=== PATIENT | male | born 2000 | race Hispanic/Latino ===

== ENCOUNTER 2022-04-30 09:13 | Inpatient (IN) | payer OTHER ==
[~2022-04-30] VITALS: Ht 177.8 cm; Wt 65.3 kg
[2022-04-30] VITALS (15 sets, daily range): BP systolic 121–140; BP diastolic 73–98
[2022-04-30] MEDS ORDERED: LACTATED RINGER'S 1,000 ML INJ ONE (09:45)
[2022-04-30 09:50] LABS: BASOPHILS % 0.6 % (0.0-1.0); EOSINOPHILS % 0.6 % (0.0-6.0); HEMATOCRIT 47.5 % (38.2-49.6); HEMOGLOBIN 16.5 g/dL (14.0-18.0); LYMPHOCYTES # (AUTO) 1.3 (1.0-3.2); LYMPHOCYTES % 26.9 % (18.0-39.1); MEAN CORPUSCULAR HEMOGLOBIN 34.4 pg (28-32); MEAN CORPUSCULAR HGB CONC 34.7 g/dL (31-35); MONOCYTES # (AUTO) 0.3 (0.2-0.8); MONOCYTES % 6.5 % (4.4-11.3); NEUTROPHILS # (AUTO) 2.9 (2.1-6.9); NEUTROPHILS % 62.6 % (38.7-80.0); PLATELET COUNT 156 x10e3/uL (140-360); RED CELL DISTRIBUTION WIDTH 12.2 % (11.7-14.4)
[2022-04-30 10:07] LABS: CLARITY,URINE CLEAR (CLEAR); COLOR,URINE YELLOW (YELLOW); KETONES,URINE >=160 (NEGATIVE); LEUKOCYTE ESTERASE ,URINE NEGATIVE (NEGATIVE); NITRITE,URINE NEGATIVE (NEGATIVE); PROTEIN,URINE DIPSTICK 2+ (NEGATIVE); URINE UROBILINOGEN 0.2 mg/dL (0.2 - 1)
[2022-04-30 10:18] LABS: ALANINE AMINOTRANSFERASE 16 IU/L (0-55); ALBUMIN 4.1 g/dL (3.5-5.0); ALBUMIN/GLOBULIN RATIO 0.9 (0.8-2.0); ALKALINE PHOSPHATASE 98 IU/L (40-150); BLOOD UREA NITROGEN 13 mg/dL (7-26); BUN/CREATININE RATIO 7 (6-25); CHLORIDE 106 mmol/L (98-107); POTASSIUM 3.6 mmol/L (3.5-5.1); SODIUM 132 mmol/L (136-145)
[2022-04-30 10:23] LABS: BACTERIA,URINE RARE /HPF; EPITHELIAL CELLS,URINE FEW /LPF; RBC,URINE 0-5 /HPF (0-5)
[2022-04-30 10:26] LABS: RENAL EPITHELIAL CELLS,URINE FEW
[2022-04-30 10:29] LABS: ANION GAP 24.6 mmol/L (8-16)
[2022-04-30 10:31] LABS: CARBON DIOXIDE < 5 mmol/L (22-29); GLUCOSE 504 mg/dL (74-118)
[2022-04-30] MEDS ORDERED: DEXTROSE 5%/0.45% SOD CHL 1,000 ML IV SCH (10:45)
[2022-04-30] MEDS ORDERED: POTASSIUM CHLORIDE 20MEQ/100ML 100 ML INJ PRN (10:45)
[2022-04-30] MEDS ORDERED: MAGNESIUM SULF 1GRAM/DEXTROSE 100 ML IV PRN (10:45)
[2022-04-30] MEDS ORDERED: SODIUM CHLORIDE 0.9% 1000ML 1,000 ML IV SCH (10:45)
[2022-04-30] MEDS ORDERED: INSULIN REGULAR, HUMAN 3ML VL 100 UNIT in SODIUM CHLORIDE 0.9% 100 ML IV SCH ×2 (10:45)
[2022-04-30] MEDS ORDERED: SODIUM CHLORIDE 0.9% 1000ML 1,000 ML ONE (10:57)
[2022-04-30] MEDS ORDERED: LEVOTHYROXINE75 MCG PO (12:38)
[2022-04-30] MEDS ORDERED: LEVEMIR FL100 UNIT/1 SQ (12:38)
[2022-04-30] MEDS ORDERED: SERTRALINE HCL50 MG PO (12:38)
[2022-04-30] MEDS ORDERED: NOVOLOG100 UNITS1 SQ (12:38)
[2022-04-30] MEDS ORDERED: DEXTROSE 50% SYRINGE 50 ML IV PRN (12:45)
[2022-04-30 13:08] LABS: CHOLESTEROL 311 MD/DL (0-199); HDL CHOLESTEROL 31 MG/DL (40-60)
[2022-04-30] MEDS: INSULIN REGULAR, HUMAN 3ML VL 100 UNIT in SODIUM CHLORIDE 0.9% 99 ML IV SCH ×12 (13:28→23:17)
[2022-04-30] MEDS ORDERED: FENOFIBRATE145 MG PO (13:35)
[2022-04-30] MEDS: SERTRALINE HCL 50 MG TAB PO SCH (14:15)
[2022-04-30] MEDS: LEVOTHYROXINE SODIUM 75 MCG TAB PO SCH (14:15)
[2022-04-30] MEDS: FENOFIBRATE 145 MG TAB PO SCH (14:15)
[2022-04-30 14:32] LABS: FREE T4 (FREE THYROXINE) 0.64 ng/dL (0.8-1.8); THYROID STIMULATING HORMONE 4.774 uIU/mL (0.350-4.940)
[2022-04-30 14:37] LABS: TRIGLYCERIDES 1625 MG/DL (0-149)
[2022-04-30 14:38] LABS: ALBUMIN 3.4 g/dL (3.5-5.0); CALCIUM 7.3 mg/dL (8.4-10.2); CREATININE, SERUM 1.42 mg/dL (0.72-1.25)
[2022-04-30] MEDS: DEXTROSE 5%/0.45% SOD CHL 1,000 ML IV SCH ×2 (14:44→22:25)
[2022-04-30] MEDS: POTASSIUM CHLORIDE 20MEQ/100ML 200 ML IV PRN (15:54)
[2022-04-30] MEDS ORDERED: POTASSIUM CHLORIDE 20MEQ/100ML 200 ML ONE (16:05)
[2022-04-30] MEDS ORDERED: IBUPROFEN 400 MG TAB PO ONE (18:30)
[2022-05-01] VITALS (26 sets, daily range): BP systolic 117–141; BP diastolic 62–103
[2022-05-01] MEDS: INSULIN REGULAR, HUMAN 3ML VL 100 UNIT in SODIUM CHLORIDE 0.9% 99 ML IV SCH ×6 (01:17→05:11)
[2022-05-01 05:15] LABS: BASOPHILS % 0.7 % (0.0-1.0); EOSINOPHILS # (AUTO) 0.1 (0.0-0.4); EOSINOPHILS % 1.8 % (0.0-6.0); HEMATOCRIT 38.3 % (38.2-49.6); HEMOGLOBIN 13.7 g/dL (14.0-18.0); LYMPHOCYTES # (AUTO) 0.9 (1.0-3.2); LYMPHOCYTES % 30.6 % (18.0-39.1); MEAN CORPUSCULAR HEMOGLOBIN 33.1 pg (28-32); MEAN CORPUSCULAR HGB CONC 35.8 g/dL (31-35); MEAN CORPUSCULAR VOLUME 92.5 fL (81-99); MONOCYTES # (AUTO) 0.3 (0.2-0.8); MONOCYTES % 10.8 % (4.4-11.3); NEUTROPHILS # (AUTO) 1.5 (2.1-6.9); PLATELET COUNT 106 x10e3/uL (140-360); RED BLOOD COUNT 4.14 x10e6/uL (4.3-5.7); RED CELL DISTRIBUTION WIDTH 12.1 % (11.7-14.4)
[2022-05-01 05:36] LABS: ANION GAP 10.5 mmol/L (8-16); CALCIUM 7.9 mg/dL (8.4-10.2); CREATININE, SERUM 1.18 mg/dL (0.72-1.25); MAGNESIUM 2.2 MG/DL (1.3-2.1)
[2022-05-01 05:38] LABS: POTASSIUM 2.5 mmol/L (3.5-5.1)
[2022-05-01] MEDS: DEXTROSE 5%/0.45% SOD CHL 1,000 ML IV SCH ×2 (05:40→14:14)
[2022-05-01] MEDS: POTASSIUM CHLORIDE 20MEQ/100ML 200 ML IV PRN (05:50)
[2022-05-01] MEDS ORDERED: POTASSIUM CHLORIDE 20MEQ/100ML 200 ML ONE (05:56)
[2022-05-01] MEDS ORDERED: LEVOTHYROXINE SODIUM 75 MCG TAB PO SCH (06:00)
[2022-05-01] MEDS: LEVOTHYROXINE SODIUM 75 MCG TAB PO SCH (06:05)
[2022-05-01] MEDS: FENOFIBRATE 145 MG TAB PO SCH (08:19)
[2022-05-01] MEDS: SERTRALINE HCL 50 MG TAB PO SCH (08:19)
[2022-05-01] MEDS ORDERED: FENOFIBRATE 160 MG TAB PO SCH (09:00)
[2022-05-01] MEDS ORDERED: SERTRALINE HCL 50 MG TAB PO SCH (09:00)
[2022-05-01] MEDS ORDERED: INSULIN LISPRO 100 UNIT/1 ML 3ML VIAL SQ ONE (14:15)
[2022-05-01] MEDS: INSULIN LISPRO 100 UNIT/1 ML 3ML VIAL SQ SCH ×3 (16:57→20:49)
[2022-05-01] MEDS ORDERED: INSULIN GLARGINE 100 UNITS/ML VIAL SQ SCH ×2 (21:00)
[2022-05-02] VITALS (17 sets, daily range): BP systolic 93–128; BP diastolic 64–86
[2022-05-02] MEDS: DEXTROSE 5%/0.45% SOD CHL 1,000 ML IV SCH ×2 (01:45→10:18)
[2022-05-02] MEDS: LEVOTHYROXINE SODIUM 75 MCG TAB PO SCH (05:58)
[2022-05-02] MEDS: INSULIN GLARGINE 100 UNITS/ML VIAL SQ SCH (05:59)
[2022-05-02] MEDS: INSULIN LISPRO 100 UNIT/1 ML 3ML VIAL SQ SCH ×7 (07:24→21:22)
[2022-05-02] MEDS: SERTRALINE HCL 50 MG TAB PO SCH (08:05)
[2022-05-02] MEDS: FENOFIBRATE 145 MG TAB PO SCH (08:05)
[2022-05-02 10:24] LABS: ANION GAP 13.9 mmol/L (8-16); CALCIUM 8.4 mg/dL (8.4-10.2); CREATININE, SERUM 0.83 mg/dL (0.72-1.25)
[2022-05-02 10:33] LABS: POTASSIUM 2.9 mmol/L (3.5-5.1)
[2022-05-02] MEDS ORDERED: POTASSIUM CHLORIDE 20MEQ/100ML 200 ML IV PRN (10:45)
[2022-05-02] MEDS ORDERED: POTASSIUM CHLORIDE 20MEQ/100ML 100 ML IV ONE (11:15)
[2022-05-02] MEDS ORDERED: POTASSIUM CHLORIDE 10MEQ EA PO ONE (11:15)
[2022-05-02] MEDS ORDERED: INSULIN GLARGINE 100 UNITS/ML VIAL SQ SCH ×2 (21:00)
[2022-05-02] MEDS: ATORVASTATIN 10 MG TAB PO SCH (21:20)
[2022-05-03] VITALS (8 sets, daily range): BP systolic 113–126; BP diastolic 74–89
[2022-05-03 05:26] LABS: BASOPHILS % 0.7 % (0.0-1.0); EOSINOPHILS # (AUTO) 0.1 (0.0-0.4); EOSINOPHILS % 1.7 % (0.0-6.0); HEMOGLOBIN 13.9 g/dL (14.0-18.0); LYMPHOCYTES # (AUTO) 1.5 (1.0-3.2); LYMPHOCYTES % 50.2 % (18.0-39.1); MEAN CORPUSCULAR HEMOGLOBIN 32.8 pg (28-32); MEAN CORPUSCULAR HGB CONC 35.6 g/dL (31-35); MONOCYTES # (AUTO) 0.6 (0.2-0.8); MONOCYTES % 18.3 % (4.4-11.3); NEUTROPHILS # (AUTO) 0.9 (2.1-6.9); NEUTROPHILS % 28.8 % (38.7-80.0); PLATELET COUNT 104 x10e3/uL (140-360); RED BLOOD COUNT 4.24 x10e6/uL (4.3-5.7)
[2022-05-03 05:45] LABS: ANION GAP 13.7 mmol/L (8-16); CALCIUM 8.4 mg/dL (8.4-10.2); CREATININE, SERUM 0.8 mg/dL (0.72-1.25)
[2022-05-03 05:48] LABS: POTASSIUM 2.7 mmol/L (3.5-5.1)
[2022-05-03] MEDS: LEVOTHYROXINE SODIUM 75 MCG TAB PO SCH (06:24)
[2022-05-03] MEDS ORDERED: SODIUM CHLORIDE 0.9% 250ML 250 ML ONE (06:35)
[2022-05-03] MEDS ORDERED: POTASSIUM CHLORIDE 20 MEQ TAB CR PO ONE ×6 (06:45→16:15)
[2022-05-03] MEDS ORDERED: POTASSIUM CHLORIDE 20MEQ/100ML 100 ML IV ONE (06:45)
[2022-05-03] MEDS: INSULIN GLARGINE 100 UNITS/ML VIAL SQ SCH (06:46)
[2022-05-03] MEDS: INSULIN LISPRO 100 UNIT/1 ML 3ML VIAL SQ SCH ×6 (07:30→21:37)
[2022-05-03] MEDS: FENOFIBRATE 145 MG TAB PO SCH (09:00)
[2022-05-03] MEDS: SERTRALINE HCL 50 MG TAB PO SCH (09:00)
[2022-05-03] MEDS ORDERED: INSULIN GLARGINE 100 UNITS/ML VIAL SQ SCH (21:00)
[2022-05-03] MEDS: ATORVASTATIN 10 MG TAB PO SCH (21:36)
[2022-05-04 00:53] VITALS: BP 123/69
[2022-05-04 05:06] LABS: BASOPHILS % 0.3 % (0.0-1.0); EOSINOPHILS # (AUTO) 0.1 (0.0-0.4); EOSINOPHILS % 1.3 % (0.0-6.0); HEMATOCRIT 38.5 % (38.2-49.6); HEMOGLOBIN 13.5 g/dL (14.0-18.0); LYMPHOCYTES # (AUTO) 1.6 (1.0-3.2); LYMPHOCYTES % 42.3 % (18.0-39.1); MEAN CORPUSCULAR HEMOGLOBIN 32.9 pg (28-32); MEAN CORPUSCULAR HGB CONC 35.1 g/dL (31-35); MEAN CORPUSCULAR VOLUME 93.9 fL (81-99); MONOCYTES # (AUTO) 0.6 (0.2-0.8); MONOCYTES % 14.7 % (4.4-11.3); NEUTROPHILS # (AUTO) 1.6 (2.1-6.9); NEUTROPHILS % 41.1 % (38.7-80.0); PLATELET COUNT 114 x10e3/uL (140-360); RED CELL DISTRIBUTION WIDTH 11.9 % (11.7-14.4)
[2022-05-04 05:21] VITALS: BP 112/76
[2022-05-04 05:26] LABS: ALBUMIN 2.9 g/dL (3.5-5.0); ANION GAP 12.2 mmol/L (8-16); CALCIUM 8.7 mg/dL (8.4-10.2); CREATININE, SERUM 0.67 mg/dL (0.72-1.25); POTASSIUM 3.2 mmol/L (3.5-5.1)
[2022-05-04] MEDS: INSULIN GLARGINE 100 UNITS/ML VIAL SQ SCH (06:00)
[2022-05-04] MEDS: LEVOTHYROXINE SODIUM 75 MCG TAB PO SCH (06:28)
[2022-05-04] MEDS: INSULIN LISPRO 100 UNIT/1 ML 3ML VIAL SQ SCH ×6 (07:30→16:30)
[2022-05-04 08:41] VITALS: BP 132/76
[2022-05-04] MEDS ORDERED: POTASSIUM CHLORIDE 10MEQ EA PO ONE ×2 (08:45→10:45)
[2022-05-04] MEDS: SERTRALINE HCL 50 MG TAB PO SCH (08:55)
[2022-05-04] MEDS: FENOFIBRATE 145 MG TAB PO SCH (08:56)
[2022-05-04 12:29] VITALS: BP 114/65
[2022-05-04 13:22] VITALS: BP 114/65
[2022-05-04] MEDS ORDERED: ATORVASTATIN CA10 MG PO (14:18)
[2022-05-04] MEDS ORDERED: OMEGA 3 1,0001 EACH PO (14:19)
[2022-05-04 16:58] VITALS: BP 126/88
== END 2022-05-04 17:40 | disposition home or self-care (01) | DRG 638 ==
LOC: ER 09:55 → ERHOLD 10:51 → ICU 13:20 → MED/SURG 05-02 15:53
DX: E10.10 Type 1 diabetes mellitus with ketoacidosis without coma (principal); N17.9 Acute kidney failure, unspecified; E87.2 Acidosis; Z79.899 Other long term (current) drug therapy; E87.6 Hypokalemia; E83.42 Hypomagnesemia; E78.1 Pure hyperglyceridemia; Z20.822 Contact with and (suspected) exposure to COVID-19; Z91.14 Patient's other noncompliance with medication regimen; E10.42 Type 1 diabetes mellitus with diabetic polyneuropathy; E86.0 Dehydration
CPT/HCPCS: 36415; 71045; 80048; 80053; 80061; 81001; 82948; 83036; 83735; 84439; 84443; 85025; 93005; 94799; 99284; J1815; J1817; J3480; J7030; J7050; J7121

== ENCOUNTER 2023-04-09 20:51 | Emergency (ER) | payer OTHER ==
[~2023-04-09] VITALS: Ht 177.8 cm; Wt 66.7 kg
[~2023-04-09 20:51] MED LIST: ATORVASTATIN CA10 MG PO; FENOFIBRATE145 MG PO; LEVEMIR FL100 UNIT/1 SQ; LEVOTHYROXINE75 MCG PO; NOVOLOG100 UNITS1 SQ; OMEGA 3 1,0001 EACH PO; SERTRALINE HCL50 MG PO
[2023-04-09] MEDS ORDERED: ALPRAZOLAM 1 MG TAB PO STA (21:21)
[2023-04-09] MEDS ORDERED: PROZAC10 MG PO (21:48)
[2023-04-09 22:14] VITALS: BP 129/84; PULSE 76; RESP 18; TEMP 98; O2SAT 99
[2023-04-10] MEDS ORDERED: XANAX0.5 MG PO ×3 (18:48→19:27)
== END 2023-04-09 22:17 | disposition home or self-care (01) ==
LOC: ER 20:57
DX: F42.9 Obsessive-compulsive disorder, unspecified (principal)
CPT/HCPCS: 36415; 82948; 99283

== ENCOUNTER 2023-04-10 18:42 | Emergency (ER) | payer OTHER ==
[~2023-04-10] VITALS: Ht 177.8 cm; Wt 66.7 kg
[~2023-04-10 18:42] MED LIST changes: +PROZAC10 MG PO
[2023-04-10 18:43] VITALS: O2SAT 100
[2023-04-10] MEDS ORDERED: XANAX0.5 MG PO ×3 (18:48→19:27)
== END 2023-04-10 21:50 | disposition home or self-care (01) ==
LOC: ER 18:47
DX: F41.9 Anxiety disorder, unspecified (principal); E11.9 Type 2 diabetes mellitus without complications
CPT/HCPCS: 99282